=== PATIENT | female | born 1965 | race Caucasian/White ===

== ENCOUNTER 2022-03-05 12:45 | Emergency (ER) | payer OTHER ==
[2022-03-05 13:02] VITALS: BP 109/64; PULSE 80; TEMP 97.7; BMI 21.1
[2022-03-05] MEDS ORDERED: SODIUM CHLORIDE 1,000 ML IV STA (13:06)
[2022-03-05] MEDS ORDERED: ACETAMINOPHEN 1000 MG/100 ML BAG IVPB ONE (13:06)
[2022-03-05 14:02] LABS: HEMOGLOBIN 11.4 G/dL (10.7-15.3); MCH 29.3 pg (25.7-33.7); MCHC 34.5 g/dl (32.0-36.0); MEAN CELL VOLUME 84.9 fl (80-96); MEAN PLT VOLUME 7.7 fl (7.5-11.1); PLATELET COUNT 468.3 10^3/uL (134-434); RBC 3.89 10^6/uL (3.60-5.2); RDW 15.5 % (11.6-15.6); WHITE BLOOD COUNT 11.2 10^3/uL (4.0-10.8)
[2022-03-05] MEDS ORDERED: ACETAMINOPHEN INJECTION 100 ML IVPB ONE (14:03)
[2022-03-05 14:09] LABS: ALBUMIN 2.8 g/dl (3.4-5.0); BILIRUBIN,TOTAL 1.1 mg/dl (0.2-1); CALCIUM 8.6 mg/dl (8.5-10); CREATININE 0.7 mg/dl (0.55-1.3); TOT PROT 5.8 g/dl (6.4-8.2)
[2022-03-05 15:26] LABS: ANISOCYTOSIS 1+
[2022-03-05 15:27] LABS: PLATELET ESTIMATE MOD INCREASED
[2022-03-05 15:29] LABS: EPITHELIAL CELLS FEW /hpf
[2022-03-05] MEDS ORDERED: levoFLOXacin 750 MG TABLET PO STA (15:43)
== END 2022-03-05 16:31 | disposition home or self-care (01) ==
LOC: FER 12:45
PROC: 3E033NZ Introduction of Analgesics, Hypnotics, Sedatives into Peripheral Vein, Percutaneous Approach (ICD-10-PCS; principal; 2022-03-05)
PROC: 3E0337Z Introduction of Electrolytic and Water Balance Substance into Peripheral Vein, Percutaneous Approach (ICD-10-PCS; 2022-03-05)
DX: R19.7 Diarrhea, unspecified (principal)
CPT/HCPCS: 36415; 74177-TC; 80053; 81003; 81015; 85027; 87086; 99285-25